=== PATIENT | female | born 1975 | race American Indian/Alaskan Native ===

== ENCOUNTER 2016-11-01 23:44 | Emergency (ER) | payer SELFPAY ==
[2016-11-02 00:27] VITALS: BP 130/78
[2016-11-02 00:58] LABS: Bacteria,Urine 1+ /HPF (Negative); Bilirubin,Urine NEG (Negative); Blood,Urine SM (Negative); Ketones,Urine 20 mg/dL (Negative); Leukocyte Esterase,Urine SM (Negative); Mucus,Urine FEW /HPF; Nitrite,Urine NEG (Negative); Protein,Urine <15 mg/dL mg/dL (Negative); Urobilinogen,Urine < 2.0 mg/dL (<2.0)
[2016-11-02 01:38] LABS: Alanine Aminotransferase 8 units/L (7-56); Albumin 3.9 g/dL (3.9-5); Alkaline Phosphatase 40 units/L (35-129); Anion Gap 20 mmol/L; BUN/Creatinine Ratio 12.85; Blood Urea Nitrogen 9 mg/dL (7-17); Calcium 9.2 mg/dL (8.4-10.2); Carbon Dioxide 19 mmol/L (22-30); Chloride 98.7 mmol/L (98-107); Glucose 88 mg/dL (65-100); Lipase 27 units/L (13-60); Potassium 3.9 mmol/L (3.6-5.0); Sodium 134 mmol/L (137-145)
[2016-11-02 01:45] LABS: Basophils % (Auto) 0.5 % (0.0-1.8); Hematocrit 39.2 % (30.3-42.9); Hemoglobin 13.4 gm/dl (10.1-14.3); Mean Corpuscular HGB Conc 34 % (30-34); Mean Corpuscular Hemoglobin 32 pg (28-32); Mean Corpuscular Volume 95 fl (79-97); Platelet Count 279 K/mm3 (140-440); Red Blood Count 4.13 M/mm3 (3.65-5.03); Red Cell Distribution Width 13.8 % (13.2-15.2); White Blood Count 7.7 K/mm3 (4.5-11.0)
[2016-11-02] MEDS ORDERED: TYLENOL PO ONE (11:27)
[2016-11-02] MEDS ORDERED: MACROBID PO ONE (11:27)
--- NOTE | 2016-11-02 14:47 | Ultrasound Report ---
ULTRASOUND OB LESS THAN 14 WEEKS - TRANSABDOMINAL AND TRANSVAGINAL INDICATION: Pelvic pain, . History of ectopic. Serum beta hCG value of 53,078 units. COMPARISON: None similar at this institution. FINDINGS: Transabdominal and transvaginal pelvic sonography performed in this patient with LMP of 09/14/2016 and estimated menstrual age of 7 weeks and zero days. It demonstrates an anteverted, gravid uterus estimated at 11.5 x 6.1 x 7 cm with a single, viable intrauterine gestation with heart rate of 89 beats per minute. Unusual/abnormal, elongated/dumbbell shaped gestational sac however. Mean crown-rump length of 0.5 cm corresponds to 6 weeks and 2 days. A small yolk sac may be present. Cervix closed with an estimated length of 3.2 cm. Slightly hypoechoic 1.8 x 2.9 x 1.7 cm posterior uterine fibroid may be present superiorly. No significant pelvic free fluid. Right ovary is 2.8 x 2.1 x 2.9 cm while the left ovary is 3.4 x 2.6 x 3 cm. Approximately 2.5 cm complex/hemorrhagic cyst in the left ovary possible, endovaginal image 17. CONCLUSION: 1. Single, live intrauterine gestation with an ultrasound estimated age of 6 weeks and 2 days and SUZANNE of 06/26/2017. Gestational sac contour though abnormal with long-term viability however not ascertained on this exam alone. [employer] SUPERVISOR correlation with serial serum beta-hCG and/or sonographic followup suggested, as appropriate. 2. Other findings including possible small fibroid, as above. Thank you for the opportunity to participate in this patient's care.
--- NOTE | 2016-11-02 15:20 | Emergency Department Report ---
ED Female HPI - General Chief complaint: Abdominal Pain Stated complaint: ABDOMINAL PAIN Time Seen by Provider: 11/02/16 11:11 Source: patient Mode of arrival: Ambulatory Limitations: No Limitations - History of Present Illness Initial comments: 40-year-old female with a past medical history of previous left-sided ectopic treated surgically presents to the hospital complaining of and abdominal pain. LMP 09/14/2016. Patient has not had any care. This is her fourth . She has a history of 2 children and a left-sided ectopic. She denies nausea, vomiting, dysuria, vaginal bleeding, or fever. Pain is moderate and worse a palpation and intermittent. - Related Data Previous Rx's Medication Instructions Recorded Last Taken Type Nitrofurantoin [place]/M-Cryst 100 mg PO Q12HR #14 capsule 11/02/16 Unknown Rx [Macrobid CAP] Allergies Allergy/AdvReac Type Severity Reaction Status Date / Time No Known Allergies Allergy Verified 11/02/16 00:23 ED Review of Systems ROS: Stated complaint: ABDOMINAL PAIN Other details as noted in HPI Comment: All other systems reviewed and negative Other: Constitutional: No fevers chills Eyes: No eye pain visual changes ENT: No ear pain or throat pain Neck: Denies pain Respiratory: Denies cough wheezing shortness of breath Cardiovascular: Denies chest pain, palpitations, syncope GI: Denies nausea, vomiting, diarrhea : Denies dysuria Musculoskeletal: Denies back pain Skin: Denies rash, lesions, erythema Neurologic: Denies headache, numbness, weakness Psychiatric: Denies suicidal ideation, hallucinations ED Past Medical Hx - Past Medical History Previous Medical History?: No - Surgical History Past Surgical History?: Yes Additional Surgical History: tubal - Social History Smoking Status: Never Smoker Substance Use Type: None - Medications Home Medications: Home Medications Medication Instructions Recorded Confirmed Last Taken Type Nitrofurantoin [place]/M-Cryst 100 mg PO Q12HR #14 capsule 11/02/16 Unknown Rx [Macrobid CAP] ED Physical Exam - General Limitations: No Limitations - Other Other exam information: General: No limitations, patient is alert in no acute distress Head exam: Atraumatic, normocephalic Eyes exam: Normal appearance, pupils equal reactive to light, extraocular movements intact ENT: Moist mucous membrane, normal oropharynx Neck exam: Normal inspection, full range of motion, no meningismus nontender Respiratory exam: Clear to auscultation bilateral, no wheezes, rales, crackles Cardiovascular: Normal rate and rhythm, normal heart sounds Abdomen: Soft, nondistended, and suprapubic tenderness, with normal bowel sounds , no rebound, or guarding Extremity: Full range of motion normal inspection no deformity Back: Normal Inspection, full range of motion, no tenderness Neurologic: Alert, oriented x3, cranial nerves intact, no motor or sensory deficit Psychiatric: normal affect, normal mood Skin: Warm, dry, intact ED Course Vital Signs 11/02/16 11/02/16 11/02/16 00:23 11:46 15:47 Temperature 98.7 F Pulse Rate 79 Respiratory 16 16 18 Rate Blood Pressure 130/78 O2 Sat by Pulse 100 100 Oximetry - Reevaluation(s) Reevaluation #1: 11/02/16 16:28 Patient she with Tylenol and Macrobid - Consultations Consultation #1: 11/02/16 Case was discussed with Dr. Darlyn Cameron [facility] ED Medical Decision Making - Lab Data Result diagrams: 11/02/16 01:00 11/02/16 01:00 Lab Results 11/02/16 11/02/16 11/02/16 Range/Units 01:00 01:00 11:32 WBC 7.7 (4.5-11.0) K/mm3 RBC 4.13 (3.65-5.03) M/mm3 Hgb 13.4 (10.1-14.3) gm/dl Hct 39.2 (30.3-42.9) % MCV 95 (79-97) fl MCH 32 (28-32) pg MCHC 34 (30-34) % RDW 13.8 (13.2-15.2) % Plt Count 279 (140-440) K/mm3 Lymph % (Auto) 46.9 H (13.4-35.0) % [place] % (Auto) 9.0 H (0.0-7.3) % Eos % (Auto) 3.0 (0.0-4.3) % Baso % (Auto) 0.5 (0.0-1.8) % Lymph # 3.6 (1.2-5.4) K/mm3 [place] # 0.7 (0.0-0.8) K/mm3 Eos # 0.2 (0.0-0.4) K/mm3 Baso # 0.0 (0.0-0.1) K/mm3 Seg Neutrophils % 40.6 (40.0-70.0) % Seg Neutrophils # 3.1 (1.8-7.7) K/mm3 Sodium 134 L (137-145) mmol/L Potassium 3.9 (3.6-5.0) mmol/L Chloride 98.7 (98-107) mmol/L Carbon Dioxide 19 L (22-30) mmol/L Anion Gap 20 mmol/L BUN 9 (7-17) mg/dL Creatinine 0.7 (0.7-1.2) mg/dL Estimated GFR > 60 ml/min BUN/Creatinine Ratio 12.85 % Glucose 88 (65-100) mg/dL Calcium 9.2 (8.4-10.2) mg/dL Total Bilirubin 0.30 (0.1-1.2) mg/dL AST 11 (5-40) units/L ALT 8 (7-56) units/L Alkaline Phosphatase 40 (35-129) units/L Total Protein 8.0 (6.3-8.2) g/dL Albumin 3.9 (3.9-5) g/dL Albumin/Globulin Ratio 1.0 % Lipase 27 (13-60) units/L HCG, Quant 47809 H (0-4) mIU/mL Urine Color (Yellow) Urine Turbidity (Clear) Urine pH (5.0-7.0) Ur Specific [place] (1.003-1.030) Urine Protein (Negative) mg/dL Urine Glucose (UA) (Negative) mg/dL Urine Ketones (Negative) mg/dL Urine Blood (Negative) Urine Nitrite (Negative) Ur Reducing Substances Urine Bilirubin (Negative) Urine Ictotest Urine Urobilinogen (<2.0) mg/dL Ur Leukocyte Esterase (Negative) Urine WBC (Auto) (0.0-6.0) /HPF Urine RBC (Auto) (0.0-6.0) /HPF U Epithel Cells (Auto) (0-13.0) /HPF Urine Bacteria (Auto) (Negative) /HPF Urine Mucus /HPF Urine HCG, Qual (Negative) 11/02/16 Range/Units Unknown WBC (4.5-11.0) K/mm3 RBC (3.65-5.03) M/mm3 Hgb (10.1-14.3) gm/dl Hct (30.3-42.9) % MCV (79-97) fl MCH (28-32) pg MCHC (30-34) % RDW (13.2-15.2) % Plt Count (140-440) K/mm3 Lymph % (Auto) (13.4-35.0) % [place] % (Auto) (0.0-7.3) % Eos % (Auto) (0.0-4.3) % Baso % (Auto) (0.0-1.8) % Lymph # (1.2-5.4) K/mm3 [place] # (0.0-0.8) K/mm3 Eos # (0.0-0.4) K/mm3 Baso # (0.0-0.1) K/mm3 Seg Neutrophils % (40.0-70.0) % Seg Neutrophils # (1.8-7.7) K/mm3 Sodium (137-145) mmol/L Potassium (3.6-5.0) mmol/L Chloride (98-107) mmol/L Carbon Dioxide (22-30) mmol/L Anion Gap mmol/L BUN (7-17) mg/dL Creatinine (0.7-1.2) mg/dL Estimated GFR ml/min BUN/Creatinine Ratio % Glucose (65-100) mg/dL Calcium (8.4-10.2) mg/dL Total Bilirubin (0.1-1.2) mg/dL AST (5-40) units/L ALT (7-56) units/L Alkaline Phosphatase (35-129) units/L Total Protein (6.3-8.2) g/dL Albumin (3.9-5) g/dL Albumin/Globulin Ratio % Lipase (13-60) units/L HCG, Quant (0-4) mIU/mL Urine Color Yellow (Yellow) Urine Turbidity Slightly-cloudy (Clear) Urine pH 5.0 (5.0-7.0) Ur Specific [place] 1.026 (1.003-1.030) Urine Protein <15 mg/dl (Negative) mg/dL Urine Glucose (UA) Neg (Negative) mg/dL Urine Ketones 20 (Negative) mg/dL Urine Blood Sm (Negative) Urine Nitrite Neg (Negative) Ur Reducing Substances Not Reportable Urine Bilirubin Neg (Negative) Urine Ictotest Not Reportable Urine Urobilinogen < 2.0 (<2.0) mg/dL Ur Leukocyte Esterase Sm (Negative) Urine WBC (Auto) 9.0 H (0.0-6.0) /HPF Urine RBC (Auto) 7.0 (0.0-6.0) /HPF U Epithel Cells (Auto) 20.0 H (0-13.0) /HPF Urine Bacteria (Auto) 1+ (Negative) /HPF Urine Mucus Few /HPF Urine HCG, Qual Positive A (Negative) - Radiology Data Radiology results: report reviewed (transvaginal sinus pelvic ultrasound, IUP, abnormal sac, complex hemorrhagic cyst, heart 89) - Medical Decision Making Patient informed that her is abnormal and unlikey to proceed to delivery. Patient is at high risk for ectopic. Follow with [facility] encouraged - Differential Diagnosis ectopic, UTI, cervicitis, vaginitis, miscarriage Critical Care Time: No Critical care attestation.: If time is entered above; I have spent that time in minutes in the direct care of this critically ill patient, excluding procedure time. ED Disposition Clinical Impression: Abnormal US, At high risk for complications of intrauterine (IUP), Urine WBC increased Disposition: DC-01 TO HOME OR SELFCARE Is pt being admited?: No Does the pt Need Aspirin: No Condition: Stable Instructions: (ED), Urinary Tract Infection in Women (ED) Additional Instructions: Take Tylenol as needed for pain. Take the antibiotic for urinary tract infection. Please note that your ultrasound showed abnormal sac in your uterus and a low heart rate. It is unlikely that this will supply to delivery at high risk for miscarriage. Please follow [employer]UC[employer] doctor provided ultrasound next week. Please return if symptoms as indicated by your discharge instructions. Prescriptions: Nitrofurantoin [place]/M-Cryst [Macrobid CAP] 100 mg PO Q12HR #14 capsule Referrals: DARLYN CAMERON MD [Staff Physician] - 3-5 Days ([employer]UC[employer]) Time of Disposition: 15:28
== END 2016-11-02 15:48 | disposition home or self-care (01) ==
LOC: ED 23:44
DX: O26.891 Other specified pregnancy related conditions, first trimester (principal); R82.99 Other abnormal findings in urine; Z3A.01 Less than 8 weeks gestation of pregnancy
CPT/HCPCS: 36415; 76801; 76817; 80053; 81001; 81025; 83690; 84702; 85025; 87086

== ENCOUNTER 2016-12-17 18:42 | Emergency (ER) | payer BC, OTHER ==
[2016-12-17] MEDS ORDERED: MORPHINE IV ONE (20:36)
[2016-12-17 20:38] LABS: Basophils % (Auto) 0.7 % (0.0-1.8); Eosinophils % (Auto) 2.8 % (0.0-4.3); Hematocrit 37.6 % (30.3-42.9); Mean Corpuscular HGB Conc 35 % (30-34); Mean Corpuscular Hemoglobin 33 pg (28-32); Mean Corpuscular Volume 95 fl (79-97); Platelet Count 305 K/mm3 (140-440); Red Blood Count 3.97 M/mm3 (3.65-5.03); Red Cell Distribution Width 14.1 % (13.2-15.2); White Blood Count 8.1 K/mm3 (4.5-11.0)
--- NOTE | 2016-12-17 20:38 | Emergency Department Report ---
ED General Adult HPI - General Chief complaint: Vaginal Bleeding Stated complaint: POSSIBLE MISCARRIAGE,12 WKS Time Seen by Provider: 12/17/16 20:35 Source: EMS Mode of arrival: Ambulatory Limitations: No Limitations - History of Present Illness Initial comments: She has a 41-year-old female A 12 weeks with a past medical history of ectopic who presents with abdominal pain and vaginal bleeding. Patient states that her symptoms started today she had a water-like discharge and bleeding. Patient has had no care for this . She says her abdominal pain is located in her suprapubic area it is a 8 out 10 as a constant achy type of pain nothing makes the pain better or worse. The pain radiates from her pelvis. Patient also states that she feels some slight nausea. Severity scale (0 -10): 8 - Related Data Previous Rx's Medication Instructions Recorded Last Taken Type Nitrofurantoin [place]/M-Cryst 100 mg PO Q12HR #14 capsule 11/02/16 Unknown Rx [Macrobid CAP] Allergies Allergy/AdvReac Type Severity Reaction Status Date / Time No Known Allergies Allergy Verified 11/02/16 00:23 ED Review of Systems ROS: Stated complaint: POSSIBLE MISCARRIAGE,12 WKS Other details as noted in HPI Constitutional: denies: chills, fever Eyes: denies: eye pain, eye discharge, vision change ENT: denies: ear pain, throat pain Respiratory: denies: cough, shortness of breath, wheezing Cardiovascular: denies: chest pain, palpitations Endocrine: no symptoms reported Gastrointestinal: nausea. denies: abdominal pain, diarrhea Genitourinary: as per HPI. denies: urgency, dysuria, discharge Musculoskeletal: denies: back pain, joint swelling, arthralgia Skin: denies: rash, lesions Neurological: denies: headache, weakness, paresthesias Psychiatric: denies: anxiety, depression Hematological/Lymphatic: denies: easy bleeding, easy bruising ED Past Medical Hx - Past Medical History Previous Medical History?: No Hx Hypertension: No Hx CVA: No Hx Heart Attack/AMI: No Hx Congestive Heart Failure: No Hx Diabetes: No Hx Deep Vein Thrombosis: No Hx Pulmonary Embolism: No Hx GERD: No Hx Liver Disease: No Hx Renal Disease: No Hx of Cancer: No Hx Sickle Cell Disease: No Hx Arthritis: No Hx Headaches / Migraines: No Hx Seizures: No Hx Kidney Stones: No Hx Psychiatric Treatment: No Hx Asthma: No Hx COPD: No Hx Tuberculosis: No Hx Dementia: No Hx HIV: No - Surgical History Past Surgical History?: Yes Hx Coronary Stent: No Hx Open Heart Surgery: No Hx Pacemaker: No Hx Internal Defibrillator: No Hx Cholecystectomy: No Hx Appendectomy: No Hx Breast Surgery: No Additional Surgical History: tubal - Social History Smoking Status: Never Smoker Substance Use Type: None - Medications Home Medications: Home Medications Medication Instructions Recorded Confirmed Last Taken Type Nitrofurantoin [place]/M-Cryst 100 mg PO Q12HR #14 capsule 11/02/16 Unknown Rx [Macrobid CAP] ED Physical Exam - General Limitations: No Limitations General appearance: alert, in no apparent distress - Head Head exam: Present: atraumatic, normocephalic - Eye Eye exam: Present: normal appearance - ENT ENT exam: Present: mucous membranes moist - Neck Neck exam: Present: normal inspection - Respiratory Respiratory exam: Present: normal lung sounds bilaterally. Absent: respiratory distress - Cardiovascular Cardiovascular Exam: Present: normal rhythm, tachycardia. Absent: systolic murmur, diastolic murmur, rubs, gallop - GI/Abdominal GI/Abdominal exam: Present: tenderness (supra pubic ), normal bowel sounds - External exam: Present: bleeding Speculum exam: Present: vaginal bleeding (large amount of clots unable to visualize cervix ) - Extremities Exam Extremities exam: Present: normal inspection - Back Exam Back exam: Present: normal inspection - Neurological Exam Neurological exam: Present: alert, oriented X3 - Psychiatric Psychiatric exam: Present: normal affect, normal mood - Skin Skin exam: Present: warm, dry, intact, normal color. Absent: rash ED Course Vital Signs 12/17/16 12/17/16 12/17/16 19:01 20:56 21:00 Temperature 98.7 F Pulse Rate 98 H Respiratory 18 18 18 Rate Blood Pressure 129/78 Blood Pressure 129/78 [Right] O2 Sat by Pulse 100 Oximetry 12/18/16 01:30 Temperature 98.7 F Pulse Rate 91 H Respiratory 16 Rate Blood Pressure Blood Pressure 100/63 [Right] O2 Sat by Pulse 99 Oximetry - Reevaluation(s) Reevaluation #1: 12/18/16 02:17 Patient has no anemia patient states pain is better and patient can tolerate by mouth intake I will send patient home. - Consultations Consultation #1: 12/18/16 02:[address]Reynolds DONIS she stated that patient can get a shot of methrogen and if she doesn't have a steady amount of vaginal bleeding patient can follow-up with OBGYN. On the following week. ED Medical Decision Making - Lab Data Result diagrams: 12/18/16 00:03 12/18/16 00:03 Lab Results 12/17/16 12/17/16 12/17/16 Range/Units 20:22 20:22 20:22 WBC 8.1 (4.5-11.0) K/mm3 RBC 3.97 (3.65-5.03) M/mm3 Hgb 13.0 (10.1-14.3) gm/dl Hct 37.6 (30.3-42.9) % MCV 95 (79-97) fl MCH 33 H (28-32) pg MCHC 35 H (30-34) % RDW 14.1 (13.2-15.2) % Plt Count 305 (140-440) K/mm3 Lymph % (Auto) 35.3 H (13.4-35.0) % [place] % (Auto) 7.9 H (0.0-7.3) % Eos % (Auto) 2.8 (0.0-4.3) % Baso % (Auto) 0.7 (0.0-1.8) % Lymph # 2.9 (1.2-5.4) K/mm3 [place] # 0.6 (0.0-0.8) K/mm3 Eos # 0.2 (0.0-0.4) K/mm3 Baso # 0.1 (0.0-0.1) K/mm3 Seg Neutrophils % 53.3 (40.0-70.0) % Seg Neutrophils # 4.3 (1.8-7.7) K/mm3 Sodium (137-145) mmol/L Potassium (3.6-5.0) mmol/L Chloride (98-107) mmol/L Carbon Dioxide (22-30) mmol/L Anion Gap mmol/L BUN (7-17) mg/dL Creatinine (0.7-1.2) mg/dL Estimated GFR ml/min BUN/Creatinine Ratio % Glucose (65-100) mg/dL Calcium (8.4-10.2) mg/dL HCG, Quant 2498 H (0-4) mIU/mL Blood Type B POSITIVE Antibody Screen TNR KIRK Antibody Screen Negative 12/18/16 12/18/16 Range/Units 00:03 00:03 WBC 10.9 (4.5-11.0) K/mm3 RBC 3.59 L (3.65-5.03) M/mm3 Hgb 11.6 (10.1-14.3) gm/dl Hct 34.4 (30.3-42.9) % MCV 96 (79-97) fl MCH 32 (28-32) pg MCHC 34 (30-34) % RDW 13.9 (13.2-15.2) % Plt Count 299 (140-440) K/mm3 Lymph % (Auto) (13.4-35.0) % [place] % (Auto) (0.0-7.3) % Eos % (Auto) (0.0-4.3) % Baso % (Auto) (0.0-1.8) % Lymph # (1.2-5.4) K/mm3 [place] # (0.0-0.8) K/mm3 Eos # (0.0-0.4) K/mm3 Baso # (0.0-0.1) K/mm3 Seg Neutrophils % (40.0-70.0) % Seg Neutrophils # (1.8-7.7) K/mm3 Sodium 135 L (137-145) mmol/L Potassium 4.2 (3.6-5.0) mmol/L Chloride 98.8 (98-107) mmol/L Carbon Dioxide 21 L (22-30) mmol/L Anion Gap 19 mmol/L BUN 7 (7-17) mg/dL Creatinine 0.6 L (0.7-1.2) mg/dL Estimated GFR > 60 ml/min BUN/Creatinine Ratio 12 % Glucose 128 H (65-100) mg/dL Calcium 9.4 (8.4-10.2) mg/dL HCG, Quant (0-4) mIU/mL Blood Type Antibody Screen KIRK Antibody Screen - Radiology Data Radiology results: report reviewed, image reviewed Transvaginal ultrasound: Shows no IUP and thickened endometrial stripe suggest bleeding retained products Transabdominal ultrasound: Shows no IUP no viable fetus. - Medical Decision Making Chief medical diagnosis: Miscarriage Differential medical diagnosis: Ectopic , uterine rupture, UTI IV morphine, CBC, CMP, type and screen, CMP, IV antiemetics, transvaginal ultrasound and transabdominal ultrasound. Patient has no IUP or ectopic visualized on ultrasound on speculum exam patient has a large amount of vaginal bleeding. Patient has miscarriage and after repeat CBC she is not anemic. After speaking with Dr.Reynolds DONIS she states that patient will require a shot of Methergine and can go and follow- up with her MARKET RESEARCH INTERN. Patient's pain has improved after the Methergine shot. Discussed plan to follow up with MARKET RESEARCH INTERN and discussed diagnosis of miscarriage with patient. Patient verbalized understanding return precautions were given to patient. Additional verbal discharge retractions were given. Critical care attestation.: If time is entered above; I have spent that time in minutes in the direct care of this critically ill patient, excluding procedure time. ED Disposition Clinical Impression: Miscarriage, Vaginal bleeding, Pelvic pain Disposition: DC- TO HOME OR SELFCARE Is pt being admited?: No Does the pt Need Aspirin: No Condition: Stable Instructions: Spontaneous Miscarriage (ED), Dilation and Curettage (ED) Referrals: TEJ ROJAS MD [Referring] - 3-5 Days
[2016-12-17] MEDS ORDERED: ZOFRAN IV ONE (20:40)
--- NOTE | 2016-12-17 22:11 | Ultrasound Report ---
FINAL REPORT PROCEDURE: US OB TRANSVAGINAL TECHNIQUE: Real-time transvaginal sonography in multiple planes of the pelvis was performed with image documentation. This examination was performed without Doppler. Vascular abnormalities, including ovarian torsion, will not be detectable without Doppler evaluation. CPT 52588 HISTORY: vaginal bleed with COMPARISON: 11/02/2016 FINDINGS: UTERUS Size: 13 x 6 x 6 cm. Endometrial thickness: 26 mm. Orientation: anteverted. Cervix: Normal. Fibroids/masses: None. There is no evidence of any intrauterine gestational sac Bilateral ovaries are not visualized Pelvic fluid: None. Other: None. IMPRESSION: Previously noted intrauterine gestational sac is no longer visualized consistent with gestational failure. Thickened endometrial stripe is suggestive of a retained products of conception..
--- NOTE | 2016-12-17 22:13 | Ultrasound Report ---
FINAL REPORT PROCEDURE: US OB \T\lt; = 14 WEEKS FETUS TECHNIQUE: Real-time transabdominal sonography in multiple planes of pelvis was performed with image documentation. This examination was performed without Doppler. Vascular abnormalities, including ovarian torsion, will not be detectable without Doppler evaluation. CPT 89524 HISTORY: vaginal bleed with COMPARISON: 11/02/2016 FINDINGS: UTERUS Size: 13 x 6 x 6 cm. Endometrial thickness: 26 mm. Orientation: anteverted. Cervix: Normal. Fibroids/masses: None. There is no intrauterine gestational sac Bilateral ovaries are not visualized Pelvic fluid: None. Other: None. IMPRESSION: Previously noted intrauterine gestational sac is no longer visualized consistent with the gestational failure. Thickened endometrial stripe is consistent with retained products of conception.
[2016-12-17] MEDS ORDERED: METHERGINE IM ONE (23:50)
[2016-12-18 00:22] LABS: Hematocrit 34.4 % (30.3-42.9); Hemoglobin 11.6 gm/dl (10.1-14.3); Mean Corpuscular HGB Conc 34 % (30-34); Mean Corpuscular Hemoglobin 32 pg (28-32); Mean Corpuscular Volume 96 fl (79-97); Platelet Count 299 K/mm3 (140-440); Red Blood Count 3.59 M/mm3 (3.65-5.03); Red Cell Distribution Width 13.9 % (13.2-15.2); White Blood Count 10.9 K/mm3 (4.5-11.0)
[2016-12-18 00:42] LABS: Anion Gap 19 mmol/L; BUN/Creatinine Ratio 12; Blood Urea Nitrogen 7 mg/dL (7-17); Calcium 9.4 mg/dL (8.4-10.2); Carbon Dioxide 21 mmol/L (22-30); Chloride 98.8 mmol/L (98-107); Glucose 128 mg/dL (65-100); Potassium 4.2 mmol/L (3.6-5.0); Sodium 135 mmol/L (137-145)
[2016-12-18 01:48] VITALS: BP 100/63
== END 2016-12-18 01:53 | disposition home or self-care (01) ==
LOC: ED 18:42
DX: O03.9 Complete or unspecified spontaneous abortion without complication (principal); Z3A.12 12 weeks gestation of pregnancy; R10.2 Pelvic and perineal pain
CPT/HCPCS: 36415; 76801; 76817; 80048; 84702; 85025; 85027; 86850; 86900; 86901; 96372; 96374; 96375; 99285; J2210; J2270; J2405

== ENCOUNTER 2020-08-30 20:22 | Emergency (ER) | payer BC, OTHER ==
[2020-08-30 21:54] LABS: Basophils # (Auto) 0.1 K/mm3 (0.0-0.1); Basophils % (Auto) 0.9 % (0.0-1.8); Eosinophils # (Auto) 0.1 K/mm3 (0.0-0.4); Eosinophils % (Auto) 1.6 % (0.0-4.3); Hematocrit 41.1 % (30.3-42.9); Hemoglobin 14.1 gm/dl (10.1-14.3); Lymphocytes # (Auto) 3.4 K/mm3 (1.2-5.4); Lymphocytes % (Auto) 38.2 % (13.4-35.0); Mean Corpuscular HGB Conc 34 % (30-34); Mean Corpuscular Volume 96 fl (79-97); Monocytes # (Auto) 0.8 K/mm3 (0.0-0.8); Monocytes % (Auto) 8.6 % (0.0-7.3); Platelet Count 310 K/mm3 (140-440); Red Cell Distribution Width 13.3 % (13.2-15.2)
[2020-08-30] MEDS ORDERED: KETOROLAC 30 MG/1 ML INJ IM ONE (22:04)
[2020-08-30 22:17] LABS: Alanine Aminotransferase 17 units/L (7-56); Albumin 4.5 g/dL (3.9-5); BUN/Creatinine Ratio 11; Blood Urea Nitrogen 9 mg/dL (7-17); Calcium 9.6 mg/dL (8.4-10.2); Hemolysis Index 10
[2020-08-30] MEDS ORDERED: MORPHINE 4 MG/1 ML INJ IV ONE (22:35)
[2020-08-30] MEDS ORDERED: ONDANSETRON 4 MG/2 ML INJ IV ONE (22:35)
--- NOTE | 2020-08-30 22:38 | Emergency Department Report ---
ED Abdominal Pain HPI - General Chief Complaint: Abdominal Pain Stated Complaint: SEVERE ABD PAIN Time Seen by Provider: 08/30/20 22:31 Source: patient Mode of arrival: Ambulatory Limitations: No Limitations - History of Present Illness Initial Comments: Patient is 44 years old female with history of diabetes. Patient presented to the ER complaining of right upper quadrant abdominal pain that radiates to epigastric area. Patient described her pain as sharp with no improving or aggravating factors. She rated her pain 10 out of 10. Patient denied any nausea, vomiting or diarrhea. No fever or chills. No chest pain or shortness of breath. MD Complaint: abdominal pain -: Sudden, This afternoon Location: RUQ Radiation: epigastric Migration to: no migration Severity scale (0 -10): 10 Quality: sharp Improves With: nothing Worsens With: nothing Associated Symptoms: denies other symptoms - Related Data Previous Rx's Medication Instructions Recorded Last Taken Type Nitrofurantoin [place]/M-Cryst 100 mg PO Q12HR #14 capsule 11/02/16 Unknown Rx [Macrobid CAP] Allergies Allergy/AdvReac Type Severity Reaction Status Date / Time No Known Allergies Allergy Verified 11/02/16 00:23 ED Review of Systems ROS: Stated complaint: SEVERE ABD PAIN Other details as noted in HPI Comment: All other systems reviewed and negative Constitutional: denies: chills, fever Respiratory: denies: cough, shortness of breath, SOB with exertion Cardiovascular: denies: chest pain, palpitations Gastrointestinal: abdominal pain. denies: nausea, vomiting, diarrhea, constipation, hematemesis, melena, hematochezia Musculoskeletal: denies: back pain Neurological: denies: headache, weakness, numbness, paresthesias, confusion, abnormal gait ED Past Medical Hx - Past Medical History Previous Medical History?: Yes Hx Hypertension: No Hx CVA: No Hx Heart Attack/AMI: No Hx Congestive Heart Failure: No Hx Diabetes: Yes Hx Deep Vein Thrombosis: No Hx Pulmonary Embolism: No Hx GERD: No Hx Liver Disease: No Hx Renal Disease: No Hx Sickle Cell Disease: No Hx Arthritis: No Hx Headaches / Migraines: No Hx Seizures: No Hx Kidney Stones: No Hx Psychiatric Treatment: No Hx Asthma: No Hx COPD: No Hx Tuberculosis: No Hx Dementia: No Hx HIV: No - Surgical History Past Surgical History?: Yes Hx Coronary Stent: No Hx Open Heart Surgery: No Hx Pacemaker: No Hx Internal Defibrillator: No Hx Cholecystectomy: No Hx Appendectomy: No Hx Breast Surgery: No Additional Surgical History: tubal - Social History Smoking Status: Never Smoker Substance Use Type: None - Medications Home Medications: Home Medications Medication Instructions Recorded Confirmed Last Taken Type Nitrofurantoin [place]/M-Cryst 100 mg PO Q12HR #14 capsule 11/02/16 Unknown Rx [Macrobid CAP] ED Physical Exam - General Limitations: No Limitations General appearance: alert, in no apparent distress - Head Head exam: Present: atraumatic, normocephalic, normal inspection - Eye Eye exam: Present: normal appearance, PERRL - ENT ENT exam: Present: normal exam, normal orophraynx, mucous membranes moist - Neck Neck exam: Present: normal inspection, full ROM. Absent: tenderness, meningismus - Respiratory Respiratory exam: Present: normal lung sounds bilaterally - Cardiovascular Cardiovascular Exam: Present: regular rate, normal rhythm, normal heart sounds - GI/Abdominal GI/Abdominal exam: Present: soft, tenderness, normal bowel sounds. Absent: distended, guarding, rebound, rigid, organomegaly, mass, bruit, pulsatile mass, hernia - Extremities Exam Extremities exam: Present: normal inspection, full ROM, normal capillary refill. Absent: tenderness, pedal edema, joint swelling, calf tenderness - Back Exam Back exam: Present: normal inspection, full ROM. Absent: CVA tenderness (R), CVA tenderness (L) - Neurological Exam Neurological exam: Present: alert, oriented X3, CN II-XII intact, normal gait, reflexes normal. Absent: motor sensory deficit - Psychiatric Psychiatric exam: Present: normal mood - Skin Skin exam: Present: warm, intact, normal color ED Course Vital Signs 08/30/20 20:36 Temperature 98.5 F Pulse Rate 96 H Respiratory 20 Rate Blood Pressure 151/86 O2 Sat by Pulse 96 Oximetry ED Medical Decision Making - Lab Data Result diagrams: 08/30/20 21:35 08/30/20 21:35 - Radiology Data Radiology results: report reviewed - Medical Decision Making Patient is 44 years old female with history of diabetes. Patient presented to the ER complaining of right upper quadrant abdominal pain that radiates to epigastric area. Patient described her pain as sharp with no improving or aggravating factors. She rated her pain 10 out of 10. Patient denied any nausea, vomiting or diarrhea. No fever or chills. No chest pain or shortness of breath. Patient received morphine and Zofran. Patient stated that she is feeling better. Right upper quadrant ultrasound showed cholelithiasis but no evidence of acute cholecystitis. Patient given prescription for pain and advised to follow-up with Dr. Babb, surgeon recreation instructor for further management. Patient also advised to return to the ER if he develop any new symptoms. Critical care attestation.: If time is entered above; I have spent that time in minutes in the direct care of this critically ill patient, excluding procedure time. ED Disposition Clinical Impression: Acute abdominal pain, Gallbladder calculus Disposition: - TO HOME OR SELFCARE Is pt being admited?: No Condition: Stable Instructions: Abdominal Pain (ED), Cholelithiasis Referrals: PRIMARY CARE, [Primary Care Provider] - 3-5 Days JOY BABB MD [Staff Physician] - 3-5 Days
--- NOTE | 2020-08-30 23:27 | Ultrasound Report ---
Abdominal ultrasound limited INDICATION: Right upper quadrant pain FINDINGS: Limited exam secondary to overlying bowel gas. Gallstones are noted within the gallbladder lumen. No gallbladder wall thickening identified. The liver is fatty. The remaining structures were p oorly identified from overlying bowel gas IMPRESSION: Fatty liver with cholelithiasis. Limited exam, as above Signer Name: Srikanth Petit MD Signed: 08/30/2020 11:22 PM Workstation Name: [id number]
[2020-08-31 01:03] LABS: Bacteria,Urine 1+ /HPF (Negative); Bilirubin,Urine NEG (Negative); Blood,Urine SM (Negative); Color,Urine Yellow (Yellow); Mucus,Urine 2+ /HPF; Urobilinogen,Urine < 2.0 mg/dL (<2.0)
[2020-08-31 02:51] VITALS: BP 121/89
--- NOTE | 2020-09-02 14:26 | Electrocardiograph Report ---
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
== END 2020-08-31 02:20 | disposition home or self-care (01) ==
LOC: ED 20:22
DX: K80.20 Calculus of gallbladder without cholecystitis without obstruction (principal); E11.9 Type 2 diabetes mellitus without complications; Z79.899 Other long term (current) drug therapy
CPT/HCPCS: 36415; 76705; 80053; 81001; 83690; 84702; 85025; 93005; 96372; 99284; J1885; J2270; J2405

== ENCOUNTER 2020-08-31 10:18 | Emergency (ER) | payer OTHER | END 2020-09-01 02:59 | disposition left against medical advice (07) | LOC: ED 10:18 | DX: K80.80 Other cholelithiasis without obstruction (principal); Z53.21 Procedure and treatment not carried out due to patient leaving prior to being seen by health care provider ==